=== PATIENT | female | born 1960 | race American Indian/Alaskan Native ===

== ENCOUNTER 2020-09-18 11:39 | Emergency (ER) | payer BC ==
[2020-09-18 12:38] VITALS: BP 167/67
--- NOTE | 2020-09-18 14:14 | Emergency Department Report ---
ED Extremity Problem HPI - General Chief complaint: Extremity Injury, Lower Stated complaint: ELIAZAR KNEE PAIN Time Seen by Provider: 09/18/20 13:48 Source: patient Mode of arrival: Ambulatory Limitations: No Limitations - History of Present Illness Initial comments: 60-year-old -Polish female who is obese presents to the emergency room for over 1 month history of bilateral knee pain without injury. Patient states that she has been taking Advil which she reports is not helping. Patient denies any swelling. Patient states that the pain is worse when she gets up from sitting or lying down. Patient states that she had been seen by her primary nurse practitioner and she did recommend Advil. Patient denies any back pain short numbness of breath chest pain. No fever no chills no nausea no vomiting. Patient denies any past medical history does not take any medications on a daily basis. And has an allergy to codeine. MD Complaint: joint paint Location: left, right, knee -: Yes arthralgia Radiation: none Severity scale (0 -10): 9 Quality: stabbing, aching Consistency: intermittent Improves with: nothing Worsens with: weight bearing, walking - Related Data Previous Rx's Medication Instructions Recorded Last Taken Type Meloxicam [Mobic] 7.5 mg PO QDAY #30 tablet 09/18/20 Unknown Rx Allergies Allergy/AdvReac Type Severity Reaction Status Date / Time codeine Allergy Unknown Verified 09/18/20 12:38 ED Review of Systems ROS: Stated complaint: ELIAZAR KNEE PAIN Other details as noted in HPI Comment: All other systems reviewed and negative ED Past Medical Hx - Past Medical History Previous Medical History?: No - Medications Home Medications: Home Medications Medication Instructions Recorded Confirmed Last Taken Type Meloxicam [Mobic] 7.5 mg PO QDAY #30 tablet 09/18/20 Unknown Rx ED Physical Exam - General Limitations: No Limitations General appearance: alert, in no apparent distress - Head Head exam: Present: atraumatic, normocephalic - Eye Eye exam: Present: normal appearance - ENT ENT exam: Present: mucous membranes moist - Neck Neck exam: Present: normal inspection - Respiratory Respiratory exam: Absent: respiratory distress, accessory muscle use - Cardiovascular Cardiovascular Exam: Present: regular rate - Extremities Exam Extremities exam: Present: full ROM, normal capillary refill, other (Patient states pain is only with walking, knees genu valgum). Absent: tenderness, pedal edema, joint swelling, calf tenderness - Back Exam Back exam: Present: normal inspection - Neurological Exam Neurological exam: Present: alert, oriented X3 - Psychiatric Psychiatric exam: Present: normal affect, normal mood - Skin Skin exam: Present: warm, dry, intact, normal color. Absent: rash ED Course Vital Signs 09/18/20 12:38 Temperature 98.4 F Pulse Rate 91 H Respiratory 18 Rate Blood Pressure 167/67 [Right] O2 Sat by Pulse 100 Oximetry ED Medical Decision Making - Medical Decision Making 60-year-old -Polish female who is obese presents to the emergency room for over 1 month history of bilateral knee pain without injury. Patient states that she has been taking Advil which she reports is not helping. Patient denies any swelling. Patient states that the pain is worse when she gets up from sitting or lying down. Patient states that she had been seen by her primary nurse practitioner and she did recommend Advil. Patient denies any back pain short numbness of breath chest pain. No fever no chills no nausea no vomiting. Patient denies any past medical history does not take any medications on a daily basis. And has an allergy to codeine. We will place patient on Mobic 7.5 mg daily. Patient will be referred to orthopedics and a primary care provider. No x-rays are ordered as patient has no trauma. Patient has no swelling Critical care attestation.: If time is entered above; I have spent that time in minutes in the direct care of this critically ill patient, excluding procedure time. ED Disposition Clinical Impression: Pain in both knees Disposition: - TO HOME OR SELFCARE Is pt being admited?: No Does the pt Need Aspirin: No Condition: Stable Instructions: Joint Pain, Acute Knee Pain, Adult, [id number] Additional Instructions: Please follow-up with a primary care provider and orthopedic provider for further evaluation of your knees. Take pain medication as prescribed. Be sure to increase your fluid intake while taking medication. Prescriptions: Meloxicam [Mobic] 7.5 mg PO QDAY #30 tablet Referrals: PRIMARY CARE, [Primary Care Provider] - 3-5 Days EDIE DORAN MD [Staff Physician] - 3-5 Days HOWARD KIMBROUGH MD [Staff Physician] - 3-5 Days
== END 2020-09-18 14:24 | disposition home or self-care (01) ==
LOC: ED 11:39
DX: M25.561 Pain in right knee (principal); M25.562 Pain in left knee; Z79.899 Other long term (current) drug therapy; Z88.8 Allergy status to other drugs, medicaments and biological substances
CPT/HCPCS: 99281